=== PATIENT | female | born 1985 | race Caucasian/White ===

== ENCOUNTER 2017-12-29 13:07 | Outpatient (CLI) | payer MEDICAID ==
[2017-12-29 14:55] LABS: RUPTURE FETAL MEMBRANES NEGATIVE (NEGATIVE)
== END 2017-12-29 15:15 | disposition home or self-care (01) ==
LOC: OBT 13:07 → L-D 13:08 → OBT 15:15
DX: O26.893 Other specified pregnancy related conditions, third trimester (principal); Z3A.38 38 weeks gestation of pregnancy; N89.8 Other specified noninflammatory disorders of vagina
CPT/HCPCS: 76818; 84112

== ENCOUNTER 2017-12-30 20:59 | Inpatient (IN) | payer MEDICAID ==
[2017-12-30] MEDS ORDERED: CARBOPROST 250 MCG INJ IM (21:30)
[2017-12-30] MEDS ORDERED: BUTORPHANOL 2 MG INJ IV (21:30)
[2017-12-30] MEDS ORDERED: MISOPROSTOL 200 MCG TAB PR (21:30)
[2017-12-30] MEDS ORDERED: OXYTOCIN 30 UNITS/LR 500 ML IV ×2 (21:30)
[2017-12-30] MEDS ORDERED: METHYLERGONOVINE 0.2 MG INJ IM (21:30)
[2017-12-30] MEDS ORDERED: LIDOCAINE 1% (MPF) 30 ML INJ INJ (21:30)
[2017-12-30] MEDS ORDERED: OXYCODONE/ASPIRIN (4.88/325) TAB PO (21:30)
[2017-12-30] MEDS: LACTATED RINGER'S 1,000 ML IV (21:41)
[2017-12-30 22:10] LABS: ADD MAN DIFF? NO
[2017-12-30 22:14] LABS: BASOPHILS % 0.3 % (0.0-2.0); EOSINOPHILS % 0.3 % (0.0-7.0); HEMOGLOBIN 11.9 g/dl (12.0-16.0); LYMPHOCYTES # 1.7 10^3/ul (0.8-2.9); LYMPHOCYTES % 26.7 % (15.0-51.0); MEAN CORPUSCULAR HEMOGLOBIN 30.9 pg (29.0-33.0); MEAN CORPUSCULAR VOLUME 90.9 fl (82.0-101.0); MEAN PLATELET VOLUME 10.6 fl (7.4-10.4); MONOCYTE # 0.5 10^3/ul (0.3-0.9); MONOCYTES % 7.9 % (0.0-11.0); NEUTROPHIL # 4.1 10^3/ul (1.6-7.5); NEUTROPHILS % 64.3 % (39.0-77.0); PLATELET COUNT 220 10^3/UL (140-415); RED BLOOD COUNT 3.85 10^6/ul (4.20-5.40); RED CELL DISTRIBUTION WIDTH 14.9 % (11.5-14.5)
[2017-12-30 22:14] LABS: WHITE BLOOD COUNT 6.4 10^3/ul (4.8-10.8)
[2017-12-30 22:37] LABS: INR 0.98; PROTIME 13.1 Sec (11.9-14.9)
[2017-12-30 22:38] LABS: PARTIAL THROMBOPLASTIN TIME 27.8 Sec (25.0-35.0)
[2017-12-30 23:03] LABS: HEPATITIS B SURFACE ANTIGEN NEGATIVE (NEGATIVE)
[2017-12-30 23:14] LABS: HIV 1&2 ANTIBODY NEGATIVE (NEGATIVE)
[2017-12-31] MEDS: LACTATED RINGER'S 1,000 ML IV ×3 (03:20→11:18)
[2017-12-31] MEDS: OXYTOCIN 30 UNITS/LR 500 ML IV ×3 (05:24→19:36)
[2017-12-31] MEDS ORDERED: FENTAnyl 2MCG/ML-ROPIV 0.2% 100 ML (08:11)
[2017-12-31] MEDS ORDERED: NALOXONE (0.4 MG/ML) INJ IV (09:00)
[2017-12-31] MEDS: FENTAnyl 2MCG/ML-ROPIV 0.2% 100 ML BAG EPI (10:10)
[2017-12-31] MEDS: DEXTROSE 5%-LR 1,000 ML IV (11:10)
[2017-12-31 14:54] LABS: RAPID PLASMA REAGIN NONREACTIVE (NR)
[2017-12-31] MEDS: IBUPROFEN 600 MG TAB PO (17:21)
[2017-12-31] MEDS: LACTATED RINGER'S 1,000 ML IV* (18:13)
[2017-12-31] MEDS ORDERED: SENNA/DOCUSATE NA (8.6MG/50MG) TAB PO (18:30)
[2017-12-31] MEDS ORDERED: METHYLERGONOVINE 0.2 MG INJ IM (18:30)
[2017-12-31] MEDS ORDERED: CARBOPROST 250 MCG INJ IM (18:30)
[2017-12-31] MEDS ORDERED: OXYTOCIN 30 UNITS/LR 500 ML IV (18:30)
[2017-12-31] MEDS ORDERED: DIPHENHYDRAMINE 25 MG CAP PO (18:30)
[2017-12-31] MEDS ORDERED: MISOPROSTOL 200 MCG TAB PR (18:30)
[2017-12-31] MEDS: IBUPROFEN 800 MG TAB PO (18:30)
[2017-12-31] MEDS ORDERED: MAGNESIUM HYDROXIDE 30ML CUP PO (18:30)
[2017-12-31] MEDS ORDERED: ZOLPIDEM 5 MG TAB PO (18:30)
[2017-12-31] MEDS: WITCH HAZEL/GLYCERIN PAD PR (21:02)
[2017-12-31] MEDS: BENZOCAINE 20% 56 ML SPRAY TOP (21:02)
[2017-12-31] MEDS: LANOLIN 7 GM TUBE TOP (21:04)
[2017-12-31] MEDS: ACETAMINOPHEN 325 MG TAB PO (21:04)
[2018-01-01] MEDS: IBUPROFEN 800 MG TAB PO ×5 (00:16→23:41)
[2018-01-01] MEDS: LACTATED RINGER'S 1,000 ML IV* ×3 (02:13→18:13)
[2018-01-01 08:25] LABS: ADD MAN DIFF? NO
[2018-01-01 08:37] LABS: BASOPHILS % 0.4 % (0.0-2.0); EOSINOPHILS % 0.3 % (0.0-7.0); HEMOGLOBIN 10.4 g/dl (12.0-16.0); LYMPHOCYTES # 1.5 10^3/ul (0.8-2.9); LYMPHOCYTES % 22.5 % (15.0-51.0); MEAN CORPUSCULAR HEMOGLOBIN 30.8 pg (29.0-33.0); MEAN CORPUSCULAR HGB CONC 33.5 g/dl (32.0-37.0); MEAN CORPUSCULAR VOLUME 91.7 fl (82.0-101.0); MEAN PLATELET VOLUME 10.3 fl (7.4-10.4); MONOCYTE # 0.4 10^3/ul (0.3-0.9); MONOCYTES % 5.9 % (0.0-11.0); NEUTROPHIL # 4.8 10^3/ul (1.6-7.5); NEUTROPHILS % 70.5 % (39.0-77.0); PLATELET COUNT 194 10^3/UL (140-415); RED BLOOD COUNT 3.38 10^6/ul (4.20-5.40); RED CELL DISTRIBUTION WIDTH 14.8 % (11.5-14.5)
[2018-01-01 08:37] LABS: WHITE BLOOD COUNT 6.8 10^3/ul (4.8-10.8)
[2018-01-01] MEDS: HYDROCODONE/APAP (5/325) TAB PO (08:43)
[2018-01-01] MEDS: LANOLIN 7 GM TUBE TOP (10:36)
[2018-01-01] MEDS: INFLUENZA VIRUS VACCINE 0.5 ML (DISPENSING) IM* (17:14)
[2018-01-02] MEDS: IBUPROFEN 800 MG TAB PO ×2 (06:35→12:21)
[2018-01-02] MEDS: LACTATED RINGER'S 1,000 ML IV* (06:36)
[2018-01-02] MEDS: MEASLES,MUMPS,RUBELLA VACCINE INJ SC* (09:00)
[2018-01-02] MEDS ORDERED: VARICELLA VACCINE LIVE/PF 1,350 UNIT/0.5 ML ML SC* (09:00)
[2018-01-02] MEDS: DIPHTH/TET/ACEL PERTUSS (ADULT) 0.5 ML VIAL IM* (12:22)
[2018-01-03] MEDS ORDERED: INFLUENZA VIRUS VACCINE 0.5 ML (DISPENSING) IM* (09:00)
== END 2018-01-02 14:20 | disposition home or self-care (01) | DRG 775 ==
LOC: L-D 20:59 → PP1 12-31 18:00
PROVIDERS: Obstetrics & Gynecology
PROC: 10E0XZZ Delivery of Products of Conception, External Approach (ICD-10-PCS; principal; 2017-12-31)
PROC: 3E033VJ Introduction of Other Hormone into Peripheral Vein, Percutaneous Approach (ICD-10-PCS; 2017-12-31)
DX: O80 Encounter for full-term uncomplicated delivery (principal); Z37.0 Single live birth; Z3A.39 39 weeks gestation of pregnancy
CPT/HCPCS: 62319; 76815; 85025; 85610; 85730; 86592; 86703; 86850; 86900; 86901; 87340; 90686; 90715